=== PATIENT | female | born 1970 ===

== ENCOUNTER 2020-10-25 15:33 | Outpatient (REF) | payer OTHER, SELFPAY ==
--- NOTE | 2020-10-29 12:58 | MHC.AU.HAS ---
Hearing Aid Evaluation Date of Visit: 10/25/20 Title One Reading Teacher Used: Not Applicable Historical Information: Description of Hearin11/17/2019 [facility] Right ear - Severe mixed hearing loss at 250-750 Hz, rising to moderate mixed loss at 4486-3506 Hz, sloping to severe loss at 8000 Hz with 100% speech understanding at 80 dB HL. Left ear - Normal hearing thresholds 250-3000 Hz, sloping to moderate high frequency sensorineural hearing loss. Current personal amplification information, if applicable: NONE Summary: Chelsea was referred for Hearing Aid Evaluation by [facility] ([facility]). Chelsea brings with her today a copy of audiogram and Dr. Clay's report from October 2019. Chelsea reports she was recently tested by [employer] on 09/18/2020; however, she does not have a copy of the test. Chelsea will contact [employer] for copy of the audiogram. A no charge pure tone check was performed today to determine if there is a change in thresholds with results showing stable air conduction thresholds for both ears. Patient reports at the age of approximately 9, her Placement Coordinator punctured the right tympanic membrane which required surgical repair. At this time, patient DOES NOT want tympanometry and earmold impressions taken. Chelsea occasionally experiences right ear drainage during the night and does not seem like a problem during the day when the aids would be worn. Discussed potential problems if drainage causes malfunction of the hearing aid. After discussing listening and daily functioning needs, advise binaural rechargeable federal district clerk in the ear aids. The rechargeable style is more moisture resistant and patient is a daily runner who needs to wear the aids while running for safety concerns as she is unable to determine where sounds/cars/truck/animals are coming from. Hearing Aid Prescription: Based on the individual?s shared listening needs, communication environments, dexterity, desire for connectivity, and personal preferences, the following prescription for amplification has been made: Right ear: Meteorology Instructor: Phonak Model: Audeo P 90-R Battery Size: Rechargeable Color: Black Acidity Tester: #1 Power Tubing: Type of Dome: Power Type of Mold: Left ear: Meteorology Instructor: Phonak Model: Audeo P 90-R Battery Size: Rechargeable Color: Black Acidity Tester: #1 Medium Tubing: Type of Dome: Open Type of Mold: Plan of Care: Patient wishes to purchase hearing aids as prescribed Action Taken/Action Needed: Prior authorization to be requested Medical Clearance to be requested from PCP/ENT Hearing Instrument Fitting to be scheduled when materials arrive Comments: Primary Diagnosis: H90.3 Bilateral Sensorineural Hearing Loss Secondary Diagnosis: Signature: Provider: Breanna Yeager, CCC-A
--- NOTE | 2020-10-29 13:08 | MHC.AU.HAS ---
Hearing Aid Evaluation Date of Visit: 10/25/20 Esthetician Facialist Used: Not Applicable Historical Information: Description of Hearin11/17/2019 [facility] Right ear - Severe mixed hearing loss at 250-750 Hz, rising to moderate mixed loss at 5713-1910 Hz, sloping to severe loss at 8000 Hz with 100% speech understanding at 80 dB HL. Left ear - Normal hearing thresholds 250-3000 Hz, sloping to moderate high frequency sensorineural hearing loss. Current personal amplification information, if applicable: NONE Summary: Chelsea was referred for Hearing Aid Evaluation by [facility] ([facility]). Chelsea brings with her today a copy of audiogram and Dr. Clay's report from October 2019. Chelsea reports she was recently tested by [employer] on 09/18/2020; however, she does not have a copy of the test. Chelsea will contact [employer] for copy of the audiogram. A no charge pure tone check was performed today to determine if there is a change in thresholds with results showing stable air conduction thresholds for both ears. Patient reports at the age of approximately 9, her Grants Analyst punctured the right tympanic membrane which required surgical repair. At this time, patient DOES NOT want tympanometry and earmold impressions taken. Chelsea occasionally experiences right ear drainage during the night and does not seem like a problem during the day when the aids would be worn. Discussed potential problems if drainage causes malfunction of the hearing aid. After discussing listening and daily functioning needs, advise binaural rechargeable salvage engineer in the ear aids. The rechargeable style is more moisture resistant and patient is a daily runner who needs to wear the aids while running for safety concerns as she is unable to determine where sounds/cars/truck/animals are coming from. Hearing Aid Prescription: Based on the individual?s shared listening needs, communication environments, dexterity, desire for connectivity, and personal preferences, the following prescription for amplification has been made: Right ear: Clinical Research Technician: Phonak Model: Audeo P 70-R Battery Size: Rechargeable Color: Black Gravel Truck Driver: #1 Power Type of Dome: Power Left ear: Clinical Research Technician: Phonak Model: Audeo P 70-R Battery Size: Rechargeable Color: Black Gravel Truck Driver: #1 Medium Type of Dome: Open Plan of Care: Patient wishes to purchase hearing aids as prescribed Action Taken/Action Needed: Prior authorization frin [facility] to be requested Medical Clearance to be requested from PCP/ENT Hearing Instrument Fitting to be scheduled when materials arrive Comments: Primary Diagnosis: H90.3 Bilateral Sensorineural Hearing Loss Signature: Provider: Breanna Yeager, CCC-A
== END 2020-10-25 15:34 | disposition home or self-care (01) ==
LOC: HO.HAP 15:33
PROVIDERS: PCP Internal Medicine; Visit Provider Audiologist
DX: Z46.1 Encounter for fitting and adjustment of hearing aid (principal); H90.3 Sensorineural hearing loss, bilateral
CPT/HCPCS: 92591

== ENCOUNTER 2021-03-06 14:01 | Outpatient (REF) | payer OTHER, SELFPAY ==
--- NOTE | 2021-03-07 12:59 | MHC.AU.HFU ---
Hearing Instrument Follow-Up- Binaural Date of Visit: 03/06/21 Right Ear: Internet Site Designer: Phonak Model: Audeo P 70-R Serial Number: [id number] Repair Warranty: 04/29/2024 Loss and Damage Warranty: 04/29/2024 Battery Size: Rechargeable Color: Black Blending Tank Tender: #1 Power Type of Dome: Small Power Type of Wax Guard: CeruShield Dispensed By: [facility] Date of Fittin02/15/2021 Left Ear: Internet Site Designer: Phonak Model: Audeo P 70-R Serial Number: [id number] Repair Warranty: 04/29/2024 Loss and Damage Warranty: 04/29/2024 Battery Size: Rechargeable Color: Black Blending Tank Tender: #1 Medium Type of Dome: Small Open Type of Wax Guard: CeruShield Dispensed By: [facility] Date of Fittin02/15/2021 Follow-Up Summary: Hearing Aid Follow-up. Originally planned to perform Real Ear measurements which could be run at the fitting appointment. Patient reports she is getting significant feedback from the right aid despite reducing overall gain significantly at the fitting and is always pushing the dome as it moves in the canal. Also reports overall constant mechanical sound quality, her own voice is too loud, and in the car hearing in a wind tunnel . Decided to order a canal c-shell before running Real Ear or making any adjustments. Took impression of the right ear without complication and ordered. Faxed and emailed MIKA Burrell the quote. Diagnosis Code(s): Primary Diagnosis: H90.3 Bilateral Sensorineural Hearing Loss Services Performed: TREJO Non-Quantity Charges: HANC: NonBillable Event Signature: Provider:Nieves Carlos CCC-A
== END 2021-03-06 14:02 | disposition home or self-care (01) ==
LOC: HO.HAP 14:01
PROVIDERS: Visit Provider Internal Medicine
DX: Z13.89 Encounter for screening for other disorder (principal)

== ENCOUNTER 2021-03-18 12:56 | Outpatient (REF) | payer SELFPAY | END 2021-03-18 12:57 | disposition home or self-care (01) | LOC: HO.HAP 12:56 | PROVIDERS: Visit Provider Internal Medicine | DX: Z13.89 Encounter for screening for other disorder (principal) ==

== ENCOUNTER 2022-02-14 08:57 | Outpatient (REF) | payer SELFPAY | END 2022-02-14 08:58 | disposition home or self-care (01) | LOC: HO.HAP 08:57 | PROVIDERS: Visit Provider Internal Medicine | DX: Z13.89 Encounter for screening for other disorder (principal) ==

== ENCOUNTER 2022-03-04 13:33 | Outpatient (REF) | payer SELFPAY | END 2022-03-04 13:34 | disposition home or self-care (01) | LOC: HO.HAP 13:33 | PROVIDERS: Visit Provider Internal Medicine | DX: Z13.89 Encounter for screening for other disorder (principal) ==

== ENCOUNTER 2022-03-13 13:19 | Outpatient (REF) | payer SELFPAY | END 2022-03-13 13:20 | disposition home or self-care (01) | LOC: HO.HAP 13:19 | PROVIDERS: Visit Provider Internal Medicine | DX: Z13.89 Encounter for screening for other disorder (principal) ==

== ENCOUNTER 2022-05-09 15:26 | Outpatient (REF) | payer SELFPAY ==
--- NOTE | 2022-05-09 16:04 | MHC.AU.HA3 ---
Hearing Instrument Follow-Up- Binaural Date of Visit: 05/09/22 Right Ear: Make, Model, Color, Serial Number: Jairo Prakasho P 70-R Black Serial#[id number] Tour Conductor Repair Warranty: 04/29/2024 Tour Conductor Loss and Damage Warranty: 04/29/2024 [facility] Service Plan: 02/15/2022 Battery Size: Rechargeable Tool Planer Set Up Operator/Slim Tube: #1 Power Earmold/Dome/CShell/SlimTip:Phonak C-Shell #[id number] warranty 07/15/2021 Type of Wax Guard: CeruShield Dispensed By: [facility] Date of Fittin02/15/2021 Left Ear: Chris, Model, Color, Serial Number: Jairo Prakasho P 70-R Black Serial#[id number] Tour Conductor Repair Warranty: 04/29/2024 Tour Conductor Loss and Damage Warranty: 04/29/2024 [facility] Service Plan: 02/15/2022 Battery Size: Rechargeable Tool Planer Set Up Operator/Slim Tube: #1 Medium Earmold/Dome/CShell/SlimTip: Medium open dome Type of Wax Guard: CeruShield Dispensed By: [facility] Date of Fittin02/15/2021 Follow-Up Summary: Chelsea reported that her left hearing aid continuously works its way out of her ear. She did not have this issue when she was initially fit; however, in the past few months, she reported that she always needs to reinsert it (i.e., pushing it back in every 20 minutes). Chelsea is using the same size fingerprint technician and dome, no changes since initial fitting so unclear of cause. Otoscopy clear. Tool Planer Set Up Operator wire slightly bent at different angle perhaps causing the issue. Replaced fingerprint technician wire. Also tried medium open dome (previously using small dome) to see if it is a tighter fit. Recommended adding retention tail. Chelsea reported that she has tried retention tails in the past but it did not stay in her ear. Demoed how to add the retention tail if needed. Provided Chelsea with a retention tail, two extra medium domes, as well as one large dome to try, if needed. Also discussed possibility of ear mold if problems with retention persist. Recommendations: Hearing instrument follow-up or maintenance as needed. Patient will call if problems persist. Recommendations (Other): *No charge as Chelsea previously spoke to Marck via phone call inquiring about fee prior to scheduling appointment as it was reportedly follow up from a previous concern. Diagnosis Code(s): Primary Diagnosis: H90.A22 SNHL, Unilatearl, Left Ear, W/Restricted Contralateral Hearing Secondary Diagnosis: H90.A31 Mixed HL, Unilateral Right Ear, W/Restricted Contralateral Signature: Provider: Harsha Thakur, [facility]
== END 2022-05-09 23:59 | disposition home or self-care (01) ==
LOC: HO.HAP 15:26
PROVIDERS: Visit Provider Internal Medicine
DX: Z13.89 Encounter for screening for other disorder (principal)

== ENCOUNTER 2023-07-14 14:16 | Outpatient (REF) | payer SELFPAY | END 2023-07-14 14:17 | disposition home or self-care (01) | LOC: HO.HAP 14:16 | PROVIDERS: Visit Provider Internal Medicine | DX: Z13.89 Encounter for screening for other disorder (principal) ==